=== PATIENT | male | born 1970 | race Caucasian/White ===

== ENCOUNTER 2022-06-08 08:29 | Emergency (ER) | payer OTHER, SELFPAY ==
[2022-06-08 08:41] VITALS: BP 155/98; PULSE 77; RESP 16; TEMP 37; O2SAT 99
--- NOTE | 2022-06-08 08:51 | ED.EXTPRO ---
HPI - Extremity Problem General Chief complaint: Extremity Problem,Nontraumatic Stated complaint: gout flare up Time Seen by Provider: 06/08/22 08:43 Source: patient Mode of arrival: ambulatory Limitations: no limitations History of Present Illness HPI Narrative: Patient presents today complaining of left lateral foot pain and redness that he describes as a gout flare. Symptoms began yesterday and have progressively gotten worse. He currently rates his pain 4/10 at rest, which increases to 6-7/10 with weightbearing. He has tried no medication for symptoms prior to arrival. Patient does have extensive history of gout. He had a small gout flare last month and was given a round of colchicine. Since that time, he has changed to a primarily plant-based diet in hopes of getting his gout under control. Related Data Home Medications Medication Instructions Recorded Confirmed allopurinol 100 mg tablet mg 06/08/22 losartan 50 mg tablet mg 06/08/22 metoprolol succinate 50 mg mg PO 06/08/22 tablet,extended release 24 hr pantoprazole 20 mg tablet,delayed mg PO 06/08/22 release semaglutide 0.25 mg or 0.5 mg (2 mg subcut 06/08/22 mg/1.5 mL) subcutaneous pen injector (Ozempic) Allergies Allergy/AdvReac Type Severity Reaction Status Date / Time No Known Allergies Allergy Verified 06/08/22 08:36 Review of Systems Review of Systems: CONSTITUTIONAL: Denies body aches, fever, chills, or sweats. EYES: Denies visual changes, redness, or discharge. ENT: Denies rhinorrhea, congestion, sore throat, or otalgia. CARDIOVASCULAR: Denies chest pain, palpitations, or edema. RESPIRATORY: Denies cough or dyspnea. GASTROINTESTINAL: Denies abdominal pain, nausea, vomiting, or diarrhea. GENITOURINARY: Denies dysuria or hematuria. SKIN: Denies rash, itching, or wounds. MUSCULOSKELETAL: Denies back pain, or myalgia.+ Left foot pain and redness NEUROLOGIC: Denies headache, numbness, tingling, or weakness. PSYCH: Denies depression or anxiety. [facility] Past Medical History Medical History (Updated 06/08/22 @ 08:58 by Nani Mehta, DIVE SUPERINTENDENT, BC) GERD (gastroesophageal reflux disease) Gout High cholesterol Comments At time of signature, I have reviewed and agree with nursing past medical, surgical, social and family history unless otherwise noted. Please see nursing chart for further information. There is no relevant family history pertinent to the presenting complaint Exam Narrative: GENERAL: Well-appearing, well-nourished, and in no acute distress. HEAD: Normocephalic, atraumatic. EYES: EOMI. No redness or drainage. Conjunctivae normal. ENT: Mucous membranes pink and moist. NECK: Normal AROM. CHEST: No respiratory distress. EXTREMITIES: Left foot: Erythema to the lateral midfoot that extends slightly to the medial portion. This area is tender to palpation. No edema. Distal sensation intact. Capillary refill normal. Pedal pulse normal. Full range of motion of the ankle and all toes. SKIN: Warm, dry, no rash. Capillary refill normal. Normal skin turgor. NEURO: No focal deficits. Alert and oriented x3. Gait steady. PSYCH: Normal affect. No signs of depression or anxiety. Course Course Level of Care: Express Care Visit Vital Signs Vital signs: Vital Signs Temperature 98.6 F 06/08/22 08:41 Pulse Rate 77 06/08/22 08:41 Respiratory Rate 16 06/08/22 08:41 Blood Pressure 155/98 H 06/08/22 08:41 Pulse Oximetry 99 06/08/22 08:41 Temperature 98.6 F 06/08/22 08:41 Pulse Rate 77 06/08/22 08:41 Respiratory Rate 16 06/08/22 08:41 Blood Pressure 155/98 H 06/08/22 08:41 Pulse Oximetry 99 06/08/22 08:41 Reviewed. Pt has been instructed to follow up with his PCP regarding his elevated blood pressure today. MDM - Extremity (Nontraumatic) Differential Diagnosis Differential diagnosis: Likely gout and cellulitis Critical Care Time Critical Care Time Critical Care Time: No D
== END 2022-06-08 09:04 | disposition home or self-care (01) ==
PROVIDERS: Emergency Provider Nurse Practitioner
DX: M10.9 Gout, unspecified (principal); K21.9 Gastro-esophageal reflux disease without esophagitis; E78.00 Pure hypercholesterolemia, unspecified
CPT/HCPCS: 99213; G0463